=== PATIENT | female | born 1945 | race Caucasian/White ===

== ENCOUNTER 2024-08-03 06:03 | Day surgery (SDC) | payer OTHER ==
[2024-08-01 13:52] VITALS: BMI 35.5
[2024-08-03 08:07] VITALS: RESP 18
[2024-08-03] MEDS ORDERED: ACETAMINOPHEN 500 MG TABLET (FP) PO PRN (09:10)
[2024-08-03] MEDS: LIDOCAINE HCL 1% PRESERVATIVE FREE - 30ML VIAL IJ ONE ×2 (10:20)
[2024-08-03] MEDS: BUPIVACAINE HCL/PF 0.75% 10 ML VIAL NR ONE (10:20)
[2024-08-03] MEDS: BUPIVACAINE HCL/PF 0.25% (2.5MG/ML) 10 ML VIAL IJ ONE ×2 (10:20)
[2024-08-03 12:12] VITALS: BP 138/77; PULSE 82; TEMP 97.8
== END 2024-08-03 11:55 | disposition home or self-care (01) ==
LOC: JASU-SURG 06:03
PROVIDERS: ATTEND Pain Medicine Pain Medicine
PROC: 3E0T3BZ Introduction of Anesthetic Agent into Peripheral Nerves and Plexi, Percutaneous Approach (ICD-10-PCS; principal; 2024-08-03 09:45)
DX: M47.816 Spondylosis without myelopathy or radiculopathy, lumbar region (principal)
CPT/HCPCS: 76000-TC-FY

== ENCOUNTER 2024-09-27 07:31 | Day surgery (SDC) | payer OTHER ==
[2024-09-27] MEDS ORDERED: LIDOCAINE HCL/PF 2% SDV 5ML VIAL ONE (07:55)
[2024-09-27] MEDS ORDERED: BUPIVACAINE HCL/PF 0.75% 10 ML VIAL ONE (07:56)
[2024-09-27] MEDS ORDERED: DEXAMETHASONE SOD PHOSPHATE 10 MG/1 ML VIAL ONE (07:56)
[2024-09-27] MEDS ORDERED: ACETAMINOPHEN 500 MG TABLET (FP) PO PRN (08:40)
[2024-09-27] MEDS ORDERED: LIDOCAINE HCL/PF 1% SDV 5ML VIAL ONE (10:56)
[2024-09-27 13:31] VITALS: RESP 18
[2024-09-27] MEDS: LIDOCAINE HCL 1% PRESERVATIVE FREE - 30ML VIAL IJ ONE (14:17)
[2024-09-27] MEDS: LIDOCAINE HCL/PF 2% SDV 5ML VIAL INF ONE (14:26)
[2024-09-27] MEDS: DEXAMETHASONE SOD PHOSPHATE 10 MG/1 ML VIAL IM ONE ×2 (14:33)
[2024-09-27] MEDS: BUPIVACAINE HCL/PF 0.75% 10 ML VIAL NR ONE ×2 (14:33)
[2024-09-27 16:18] VITALS: BP 137/72; PULSE 85; TEMP 97.1
== END 2024-09-27 15:40 | disposition home or self-care (01) ==
LOC: JASU-SURG 07:31
PROVIDERS: ATTEND Pain Medicine Pain Medicine
PROC: 015B3ZZ Destruction of Lumbar Nerve, Percutaneous Approach (ICD-10-PCS; principal; 2024-09-27 14:15)
DX: M47.816 Spondylosis without myelopathy or radiculopathy, lumbar region (principal)
CPT/HCPCS: 76000-TC-FY; J1100